=== PATIENT | female | born 1985 | race Caucasian/White ===

== ENCOUNTER 2018-06-02 12:15 | Emergency (ER) | payer SELFPAY ==
--- NOTE | 2018-06-02 12:36 | ER Document Report ---
ED Breast Problem - General Chief Complaint: Breast Lump Stated Complaint: RASH, LUMP ON RIGHT BREAST Time Seen by Provider: 06/02/18 12:26 Mode of Arrival: Ambulatory Information source: Patient Notes: 32-year-old female presents emergency apartment with a 4-day history of a right breast lump with overlaying erythema. Patient denies trauma, injury. Denies nipple drainage, fever, chills. No history MRSA. No history of breast cancer in herself or family history of breast cancer. TRAVEL OUTSIDE OF THE [place] IN LAST 30 DAYS: No - HPI Patient complains to provider of: Lump, Redness Onset: Other - 4 days prior to arrival. Onset/Duration: Sudden Quality of pain: No pain Severity: Mild Pain Level: Denies Associated Symptoms: None Similar symptoms previously: No Recently seen / treated by doctor: No - Related Data Allergies/Adverse Reactions: No Known Allergies Allergy (Verified 06/02/18 12:16) Past Medical History - General Information source: Patient - Social History Smoking Status: Never Smoker Family History: Reviewed & Not Pertinent Pulmonary Medical History: Denies: Hx Asthma, Hx Bronchitis, Hx Pneumonia - Immunizations Hx Diphtheria, Pertussis, Tetanus Vaccination: No Review of Systems - Review of Systems Constitutional: No symptoms reported EENT: No symptoms reported Cardiovascular: No symptoms reported Respiratory: No symptoms reported Gastrointestinal: No symptoms reported Genitourinary: No symptoms reported Female Genitourinary: No symptoms reported Musculoskeletal: No symptoms reported Skin: Change in color, Lesions Hematologic/Lymphatic: No symptoms reported Neurological/Psychological: No symptoms reported -: Yes All other systems reviewed and negative Physical Exam - Notes Notes: PHYSICAL EXAMINATION: GENERAL: Well-appearing, well-nourished and in no acute distress. HEAD: Atraumatic, normocephalic. EYES: Pupils equal round and reactive to light, extraocular movements intact, conjunctiva are normal. ENT: Nares patent, oropharynx clear without exudates. Moist mucous membranes. NECK: Normal range of motion, supple without lymphadenopathy LUNGS: Breath sounds clear to auscultation bilaterally and equal. No wheezes rales or rhonchi. HEART: Regular rate and rhythm without murmurs BREAST: 4x4cm area of induration to the 12 oclock position with overlying erythema. No fluctuance. Associated warmth. No tenderness to palpation. No nipple discharge. No other masses felt. ABDOMEN: Soft, nontender, nondistended abdomen. No guarding, no rebound. No masses appreciated. Female : deferred Musculoskeletal: Normal range of motion, no pitting or edema. No cyanosis. NEUROLOGICAL: Cranial nerves grossly intact. Normal speech, normal gait. Normal sensory, motor exams PSYCH: Normal mood, normal affect. SKIN: Warm, Dry, 4x4cm area of erythema to the 12 oclock position of the Right breast. Course - Re-evaluation Re-evalutation: 06/02/18 12:41 I will start the patient on antibiotics for possible cellulitis and abscess. I instructed the patient that she needs to follow-up with the primary care physician for a reevaluation of the cellulitis and mammogram. I told the patient to return to the emergency department for fever, chills, worsening symptoms. I educated her about the importance of following up with a primary care physician and obtaining a mammogram in case this is breast cancer. Patient understands the necessity of followup. Discharge - Discharge Clinical Impression: Cellulitis of right breast, Breast mass in female Condition: Good Disposition: HOME, SELF-CARE Instructions: Breast Lumps ([facility]), Cellulitis ([facility]) Additional Instructions: Please take the antibiotics provided. Follow up with a primary care physician for re-evaluation of the cellulitis and breast mass. A mammogram may need to be ordered by the primary care physician to evaluate for the breast mass. If you begin having fever, chills, or the redness/mass is enlarging, please return to the emergency department. Prescriptions: Cephalexin Monohydrate [Keflex 500 mg Capsule] 500 mg PO Q6H 7 Days #28 capsule Sulfamethoxazole/Trimethoprim [Bactrim Ds Tablet] 1 each PO BID #14 tablet Referrals: JEROD WALL MD [ACTIVE STAFF] - Follow up as needed REGINALDO LIMA DO [NO LOCAL MD] - Follow up as needed
[2018-06-02 13:02] VITALS: BP 133/89
== END 2018-06-02 13:17 | disposition home or self-care (01) ==
LOC: ER 12:15
DX: R21 Rash and other nonspecific skin eruption (principal); N63.0 Unspecified lump in unspecified breast
CPT/HCPCS: 99283

== ENCOUNTER 2018-07-04 02:41 | Emergency (ER) | payer SELFPAY ==
[2018-07-04 04:25] LABS: APPEARANCE,URINE SLIGHTLY-CLOUDY; BILIRUBIN,URINE NEGATIVE (NEGATIVE); COLOR,URINE STRAW; GLUCOSE, URINE NEGATIVE (NEGATIVE); KETONES,URINE NEGATIVE (NEGATIVE); LEUKOCYTE ESTERASE,URINE LARGE (NEGATIVE); NITRITE,URINE NEGATIVE (NEGATIVE); PROTEIN,URINE NEGATIVE (NEGATIVE); URINE SPECIFIC GRAVITY 1.003; UROBILINOGEN,URINE NEGATIVE mg/dL (<2.0)
[2018-07-04] MEDS ORDERED: CEFTRIAXONE 1 GM/D5W RTU 1 GM/50 ML RTUPB IV ONE (05:15)
[2018-07-04] MEDS ORDERED: KETOROLAC TROMETHAMINE INJ/PF 30 MG/1 ML SDV IV ONE (05:15)
--- NOTE | 2018-07-04 05:18 | ER Document Report ---
ED GI/ - General Chief Complaint: Flank Pain Stated Complaint: FLANK PAIN Time Seen by Provider: 07/04/18 05:06 Notes: Patient is a 32-year-old female that comes to the emergency department for chief complaint of possible kidney infection. She states that 2 days ago she started having painful urination, yesterday she started feeling chills and possible fever, today she had bilateral worsening flank pain that slowly became more painful to the point that she came to the emergency department. She denies nausea or vomiting. She states she had a kidney infection once before and this felt the same. She denies history of kidney stones. She denies vaginal bleeding or discharge. She has had a tubal ligation, appendectomy, cholecystectomy, and C-sections. She denies any daily medications. TRAVEL OUTSIDE OF THE [place] IN LAST 30 DAYS: No - Related Data Allergies/Adverse Reactions: No Known Allergies Allergy (Verified 07/04/18 05:06) Past Medical History - General Information source: Patient - Social History Smoking Status: Never Smoker Frequency of alcohol use: None Drug Abuse: None Lives with: Family Family History: Reviewed & Not Pertinent Pulmonary Medical History: Denies: Hx Asthma, Hx Bronchitis, Hx Pneumonia Renal/ Medical History: Denies: Hx Peritoneal Dialysis Past Surgical History: Reports: Hx Appendectomy, Hx Section - x3, Hx Cholecystectomy - Immunizations Immunizations up to date: Yes Hx Diphtheria, Pertussis, Tetanus Vaccination: Yes Review of Systems - Review of Systems Constitutional: No symptoms reported EENT: No symptoms reported Cardiovascular: No symptoms reported Respiratory: No symptoms reported Gastrointestinal: See HPI Genitourinary: See HPI Female Genitourinary: No symptoms reported Musculoskeletal: No symptoms reported Skin: No symptoms reported Hematologic/Lymphatic: No symptoms reported Neurological/Psychological: No symptoms reported Physical Exam - Vital signs Vitals: Temp Pulse Resp BP Pulse Ox 99.6 F 97 16 134/87 H 99 07/04/18 02:45 07/04/18 02:45 07/04/18 02:45 07/04/18 02:45 07/04/18 02:45 - Notes Notes: GENERAL: Alert, interacts well. No acute distress. HEAD: Normocephalic, atraumatic. EYES: Pupils equal, round, and reactive to light. Extraocular movements intact. ENT: Oral mucosa moist, tongue midline. Oropharynx unremarkable. Airway patent. Nares patent, no nasal septal hematoma, TM's intact. NECK: Full range of motion. Supple. Trachea midline. LUNGS: Clear to auscultation bilaterally, no wheezes, rales, or rhonchi. No respiratory distress. HEART: Regular rate and rhythm. No murmur ABDOMEN: Soft, non-tender. Non-distended. Bowel sounds present in all 4 quadrants. GENITOURINARY: Deferred EXTREMITIES: Moves all 4 extremities spontaneously. No edema, normal radial and dorsalis pedis pulses bilaterally. No cyanosis. BACK: no cervical, thoracic, lumbar midline tenderness. No saddle anesthesia, normal distal neurovascular exam. She does have bilateral CVA tenderness, slightly worse on the left. NEUROLOGICAL: Alert and oriented x3. Normal speech. [cranial nerves II through XII grossly intact]. PSYCH: Normal affect, normal mood. SKIN: Warm, dry, normal turgor. No rashes or lesions noted. Course - Re-evaluation Re-evalutation: Patient is well-appearing. She reports dysuria, chills/fever yesterday, now flank pain. Flank pain is bilateral, slightly worsened. As result I have low suspicion of ureterolithiasis with secondary infection. Vital signs are unremarkable. Abdomen is soft and benign. Urinalysis does indicate an infection. Culture placed. Started on Rocephin. Given Toradol. Discussed workup and options. After discussion decision was made to proceed with treatment of her suspected pyelonephritis developing, I discussed strict return precautions for patient including fever, vomiting, increased pain. Patient states satisfaction and agreement with plan. Stable at time of discharge. - Vital Signs Vital signs: Temp Pulse Resp BP Pulse Ox 98.1 F 78 18 125/85 100 07/04/18 06:00 07/04/18 06:00 07/04/18 06:00 07/04/18 06:00 07/04/18 06:00 - Laboratory Result Diagrams: 07/04/18 05:00 07/04/18 05:00 Laboratory results interpreted by me: 07/04/18 03:50 Urine Blood LARGE H Ur Leukocyte Esterase LARGE H Discharge - Discharge Clinical Impression: Dysuria, Flank pain Urinary tract infection Qualifiers: Urinary tract infection type: site unspecified Hematuria presence: without hematuria Qualified Code(s): N39.0 - Urinary tract infection, site not specified Condition: Stable Disposition: HOME, SELF-CARE Additional Instructions: Your symptoms and workup are most consistent with a developing kidney infection. You have been treated with Rocephin initially, complete treatment with Keflex an tibiotic at home. Take Tylenol or ibuprofen if needed for pain, take the [place] provided if needed for severe pain, take Phenergan if needed for nausea. Follow-up with primary care. Return if you worsen including increased pain, vomiting, spiking fevers, or any other concerning or worsening symptoms. Prescriptions: Cephalexin Monohydrate [Keflex 500 mg Capsule] 500 mg PO QID #28 capsule Promethazine HCl [Phenergan 25 mg Tablet] 25 mg PO Q6H PRN #20 tablet PRN Reason: Forms: Return to Work
[2018-07-04] MEDS ORDERED: HYDROCODONE/ACETAMINOPHEN 5-325 MG (6 TAB/ER DISP) PO PRN (05:19)
[2018-07-04 06:03] VITALS: BP 125/85
== END 2018-07-04 06:03 | disposition home or self-care (01) ==
LOC: ER 02:41
DX: N39.0 Urinary tract infection, site not specified (principal); Z98.51 Tubal ligation status; Z90.49 Acquired absence of other specified parts of digestive tract
CPT/HCPCS: 99284; 96375; 96365; 87086; 81025; 87088; 81001; 87186; J1885; J0696

== ENCOUNTER 2018-10-29 02:25 | Emergency (ER) | payer SELFPAY ==
[2018-10-29 02:31] VITALS: BP 142/87
== END 2018-10-29 03:42 | disposition left against medical advice (07) ==
LOC: ER 02:25
DX: Z53.21 Procedure and treatment not carried out due to patient leaving prior to being seen by health care provider (principal)

== ENCOUNTER 2018-11-01 10:46 | Emergency (ER) | payer SELFPAY ==
--- NOTE | 2018-11-01 11:19 | ER Document Report ---
HPI - HPI Time Seen by Provider: 11/01/18 11:02 Pain Level: 2 Context: Patient is a 32-year-old female who presents the emergency department with a chief complaint of a cough, sore throat, weakness, fever, cold chills, and congestion. She states that she has had her symptoms for the past week. She has been taking Excedrin and Tylenol to help with her symptoms. She denies any past medical history and she does not take any medications. She is a current half a pack a day smoker. - CONSTITUTIONAL Constitutional: REPORTS: Fever, Chills - EENT EENT: REPORTS: Sore Throat, Congestion. DENIES: Ear Pain, Nasal Drainage-Clear, Eye problems - NEURO Neurology: REPORTS: Headache - CARDIOVASCULAR Cardiovascular: DENIES: Chest pain - RESPIRATORY Respiratory: REPORTS: Coughing. DENIES: Trouble Breathing - GASTROINTESTINAL Gastrointestinal: DENIES: Abdominal Pain - REPRODUCTIVE Reproductive: DENIES: : - MUSCULOSKELETAL Musculoskeletal: DENIES: Extremity pain - DERM Skin Color: Normal Skin Problems: None Past Medical History - General Information source: Patient - Social History Smoking Status: Current Every Day Smoker Family History: Reviewed & Not Pertinent Pulmonary Medical History: Denies: Hx Asthma, Hx Bronchitis, Hx Pneumonia Renal/ Medical History: Denies: Hx Peritoneal Dialysis Past Surgical History: Reports: Hx Appendectomy, Hx Section - x3, Hx Cholecystectomy - Immunizations Immunizations up to date: Yes Hx Diphtheria, Pertussis, Tetanus Vaccination: Yes Vertical Provider Document - CONSTITUTIONAL Agree With Documented VS: Yes Exam Limitations: No Limitations General Appearance: No Apparent Distress - INFECTION CONTROL TRAVEL OUTSIDE OF THE [place] IN LAST 30 DAYS: No - HEENT HEENT: Atraumatic, Normocephalic, PERRLA, Pharyngeal Tenderness, Pharyngeal Erythema. negative: Conjuctival Injection, Pharyngeal Exudate, Tympanic Membrane Red, Tympanic Membrane Bulging - NECK Neck: Normal Inspection - RESPIRATORY Respiratory: Breath Sounds Normal, No Respiratory Distress - CARDIOVASCULAR Cardiovascular: Regular Rate, Regular Rhythm Pulses: Normal: Radial - GI/ABDOMEN Gastrointestinal: Abdomen Soft - MUSCULOSKELETAL/EXTREMETIES Musculoskeletal/Extremeties: FROM - NEURO Level of Consciousness: Awake, Alert, Appropriate Motor/Sensory: No Motor Deficit, No Sensory Deficit - DERM Integumentary: Warm, Dry, No Rash Course - Re-evaluation Re-evalutation: 11/01/18 11:20 Since patient has been having cough for the past week, chest x-ray will be done. 11/01/18 12:00 Patient's chest x-ray is normal at this time, ruling out pneumonia. I suspect the patient has an upper respiratory viral. I have instructed her to take cetirizine, ibuprofen, and Tylenol to help with her symptoms. She also be given Flonase. Her rapid strep test is negative. A throat culture was sent. I suspect patient most likely has an upper respiratory viral infection because her daughter is here in the emergency department also with what appears to be hand- foot and mouth disease. - Vital Signs Vital signs: Temp Pulse Resp BP Pulse Ox 98.8 F 106 H 14 132/80 H 97 11/01/18 10:57 11/01/18 10:57 11/01/18 10:57 11/01/18 10:57 11/01/18 10:57 Discharge - Discharge Clinical Impression: Upper respiratory infection, viral, Cough Condition: Stable Disposition: HOME, SELF-CARE Instructions: Upper Respiratory Illness ([facility]) Additional Instructions: You were seen today in the emergency department for a cough, cold chills, and fever. Your symptoms are most consistent with an upper respiratory viral infection. Please take acetaminophen 1000 mg and ibuprofen 600 mg every 6 hours as needed for any body aches or fever. You have been given cetirizine, medication to help with your runny nose. Take 1 tablet every day while you have symptoms. You have also been given Flonase, medication to help with the inflammation in your nose. Place 1 spray to each nostril twice a day. You are also being prescribed Tessalon Perles, medication to help with the cough. Please take as directed. If you develop a fever greater than 100.4 F while on ibuprofen and acetaminophen, develop shortness of breath, difficulty breathing, or any symptoms that are worrisome to you, please return to the emergency department. Prescriptions: Benzonatate [Tessalon Perle 100 mg Capsule] 100 mg PO Q8HP PRN #40 cap PRN Reason: Cetirizine HCl [All Day Allergy] 10 mg PO DAILY #30 tablet Fluticasone Propionate [Flonase Nasal [place] 50 Mcg/[place] 16 gm] 2 sprays NASL DAILY #1 inhaler Forms: Return to Work
--- NOTE | 2018-11-01 11:37 | RADIOLOGY REPORT (SQ) ---
EXAM DESCRIPTION: CHEST 2 VIEWS COMPLETED DATE/TIME: 11/01/2018 11:29 am REASON FOR STUDY: cough/fever x7 days COMPARISON: None. TECHNIQUE: Frontal and lateral radiographic views of the chest acquired. NUMBER OF VIEWS: Two view. LIMITATIONS: None. FINDINGS: LUNGS AND PLEURA: No opacities, masses or pneumothorax. No pleural effusion. MEDIASTINUM AND HILAR STRUCTURES: No masses or contour abnormalities. HEART AND VASCULAR STRUCTURES: Heart normal size. No evidence for failure. BONES: No acute findings. HARDWARE: None in the chest. OTHER: No other significant finding. IMPRESSION: NO SIGNIFICANT RADIOGRAPHIC FINDING IN THE CHEST. TECHNICAL DOCUMENTATION: JOB ID: [id number] [employer]- All Rights Reserved Reading location - IP/workstation name: [email or web address]
[2018-11-01] MEDS ORDERED: DEXAMETHASONE SOD PHOS INJ 10 MG/1 ML VIAL IM ONE (12:02)
[2018-11-01 12:25] VITALS: BP 129/88
== END 2018-11-01 12:25 | disposition home or self-care (01) ==
LOC: ER 10:46
DX: J06.9 Acute upper respiratory infection, unspecified (principal); B97.89 Other viral agents as the cause of diseases classified elsewhere; R05 Cough; J02.9 Acute pharyngitis, unspecified; R50.9 Fever, unspecified; R51 Headache; F17.200 Nicotine dependence, unspecified, uncomplicated
CPT/HCPCS: 99283; 96372; 87070; 87880; 87077; 71046; J1100